=== PATIENT | male | born 1980 | race African-American/Black ===

== ENCOUNTER 2021-12-26 09:53 | Emergency (ER) | payer OTHER ==
[~2021-12-26] VITALS: Ht 188 cm; Wt 100.0 kg
[~2021-12-26 09:53] MED LIST: ABILIFY10 MG PO; ALLERGY RELF10 M1 PO; AMOXICILLIN875 MG PO; ATENOLOL50 MG PO; ATIVAN1 MG PO; BENADRYL 50MG C50 MG PO; BENZTROPINE2 MG OR; CELEXA10 MG PO; CELEXA20 MG OR; FLONASE NASAL50 MCG; HALOPERIDOL10 MG OR; HYDROCHLOROT25 MG PO; IMDUR30 MG PO; ISOSORB MONO30 MG PO; KLOR-CON 1010 ME1 PO; LISINOP/HCTZ1 TA2 PO; MAG OXIDE400 MG PO; METOPROLOL50 MG OR; RISPERDAL1 MG PO; RISPERDAL3 M1 PO; SEROQUEL50 MG PO; TENORMIN25 MG PO; TORADOL OR; ZESTRIL10 MG OR; ZOCOR20 M1 PO; [UNRECOGNIZED DRUG - REMARK]
[2021-12-26 10:53] LABS: HEMATOCRIT 43.2 % (39.0-50.0); HEMOGLOBIN 14.1 g/dl (14.0-18.0); IMMATURE GRANULOCYTES 0.5 % (0.0-5.0); MEAN CORPUSCULAR HGB 28.9 pG CALC (26.0-32.0); MEAN CORPUSCULAR HGB CONC 32.6 g/dL CAL (32.0-36.0); NEUT# 2.23 thou/uL (1.82-7.42); RED BLOOD COUNT 4.88 mill/uL (4.70-6.10); RED CELL DISTRI WIDTH 13.4 % (11.5-15.5)
[2021-12-26 10:55] LABS: MEAN CELL VOLUME 88.5 fL CALC (80.0-100.0)
[2021-12-26 11:05] LABS: INTERNATIONAL NORMALIZED RATIO 1.1 RATIO (0.7-1.3)
[2021-12-26 11:12] LABS: ALBUMIN 4.2 g/dL (3.2-5.0); ALKALINE PHOSPHATASE 57 u/l (38-126); AMYLASE 79 u/l (30-110); BUN 12 mg/dL (9-20); BUN/CREATININE RATIO 15 (12-20 (CALC)); CHLORIDE 110 mmol/l (95-108); CREATININE 0.8 mg/dL (0.7-1.3); GFR FOR AFR.AMER. > 60 ML/MIN (>=60 (CALC)); GFR OTHER RACES > 60 ML/MIN (>=60 (CALC)); LIPASE 50 u/l (23-300); SGOT/AST 31 u/l (17-59); SODIUM 139 mmol/l (137-146); TOTAL PROTEIN 7.3 g/dL (6.3-8.2)
[2021-12-26 11:21] LABS: ANION GAP 11 (6-22 (CALC)); BILIRUBIN, TOTAL 0.5 mg/dL (0.0-1.4); CARBON DIOXIDE 22 mmol/l (22-30)
[2021-12-26] MEDS ORDERED: ATENOLOL25 MG PO ×2 (13:05→13:21)
[2021-12-26] MEDS ORDERED: LISINOP/HCTZ1 TA2 PO (13:21)
[2021-12-26] MEDS ORDERED: HYDROCHLOROT25 MG PO (13:21)
[2021-12-26 13:26] VITALS: BP 125/83
== END 2021-12-26 13:28 | disposition home or self-care (01) | DRG 392 ==
LOC: ED 09:53
PROVIDERS: Emergency Medicine
DX: K59.00 Constipation, unspecified (principal); I10 Essential (primary) hypertension
CPT/HCPCS: Q9967